=== PATIENT | female | born 1955 | race Caucasian/White ===

== ENCOUNTER 2020-02-27 10:26 | Outpatient (CLI) | payer OTHER, SELFPAY ==
--- NOTE | 2020-02-27 10:57 | XR_ITS ---
WS: [id number] Scoliosis series, 02/27/2020 Clinical Data: CHRONIC BACK PAIN/?SCOLIOSIS Comparison: None. Findings: The patient has a thoracic dextroscoliosis. The measurement of the scoliosis was performed from the T 6 vertebral body to the T9 vertebral body and in the T11 vertebral body and the curvature was 36 degr ees. Then a levoscoliosis of the lumbar spine which was measured from the T11 vertebral body to the L1 to vertebral level and then to the L4 vertebral body. The curvature was 52 degrees. The chest showed no acute cardiopulmonary disease. The abdomen showed a probable hiatal hernia but ot herwise was unremarkable. XR/XR scoliosis survey 2-3V 94630 Impression: 1. 36 degree dextroscoliosis of the thoracic spine with the apex at the T9 vert ebral body. 2. 52 degree levoscoliosis of the lumbar spine with the apex at the L1-L2 disc interspace.
== END 2020-02-27 10:27 | disposition home or self-care (01) ==
LOC: RAD 10:29
PROVIDERS: Visit Provider Family Medicine
DX: M54.9 Dorsalgia, unspecified (principal); G89.29 Other chronic pain; M41.84 Other forms of scoliosis, thoracic region
CPT/HCPCS: 72082

== ENCOUNTER → 2021-04-22 10:10 | Outpatient (BNVA) | payer MEDICAID, SELFPAY | PROVIDERS: Visit Provider Family Medicine | DX: Z76.89 Persons encountering health services in other specified circumstances (principal); M54.5 Low back pain; I10 Essential (primary) hypertension; Q85.01 Neurofibromatosis, type 1 | CPT/HCPCS: 80053; 80061; 84443; 85025 ==

== ENCOUNTER 2022-06-08 13:45 | Observation (INO) | payer MEDICARE, MEDICAID, SELFPAY ==
[2022-06-08] VITALS (12 sets, daily range): BP systolic 129–150; BP diastolic 80–97; PULSE 101–120; RESP 18–21; TEMP 36.5–36.7; O2SAT 94–100; BMI 20.7
--- NOTE | 2022-06-08 13:54 | ECG_ITS ---
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 Measurements Intervals [place] Rate: 99 P: 52 RI: 102 QRS: 37 QRSD: 81 T: 40 QT: 328 QTc: 422 Interpretive Statements SINUS RHYTHM WITH SHORT RI INTERVAL MINIMAL ST DEPRESSION No previous ECG available for comparison Electronically Signed On 06-08-2022 22:53:07 CDT by Bernie Martinez M.D. [id number] f
--- NOTE | 2022-06-08 15:13 | XR_ITS ---
WS: [id number] Exam: XR chest 1V portable [id number] Date/Time of Exam: 06/08/2022 3:13 PM Reason For Exam: chest pain Comparison 08/10/2006. Mild infiltrate in the right lower lobe. Remaining lung swenson are clear. No pleural effusions. No pn eumothorax. Heart size is normal for technique. Probable hiatal hernia. Angular levoscoliosis of the thoracolumbar spine. The mediastinum is normal in contour. XR/XR chest 1V portable [id number] IMPRESSION: 1. Mild infiltrate in the right lung base. Developing pneumonia is not excluded . 2. Hiatal hernia. Thoracolumbar scoliosis.
--- NOTE | 2022-06-08 15:13 | XR_ITS ---
WS: [id number] Exam: XR KUB portable [id number] Date/Time of Exam: 06/08/2022 3:13 PM Reason For Exam: epigastric pain No bowel obstruction or free air. No sign of organ enlargement. Angular levoscoliosis of the thoracol umbar spine. XR/XR KUB portable [id number] IMPRESSION: 1. No acute abdominal process identified.
--- NOTE | 2022-06-08 15:24 | W.ED.CHESTPA ---
HPI - Chest Pain General: Chief Complaint: Chest Pain Stated Complaint: chest pain Time Seen by Provider: 06/08/22 15:05 History of Present Illness: 66-year-old female presents with mid lower chest pain that radiates to her back. She reports that it started this morning after a colonoscopy. They got down around 11-11:30. She denies any shortness of breath. She denies any nausea, vomiting. She denies any abdominal pain. Patient denies any fever, chills. Associated symptoms: Deny abdominal pain, dyspnea, fever(s), nausea, palpitations, syncope or vomiting Review of Systems Const: Denies: fever(s) or chills Eyes: Denies: change in vision or blurry vision ENMT: Denies: throat pain or hoarseness Card: Reports: chest pain; Denies: palpitations, irregular heart rhythm, lightheadedness or syncope Resp: Denies: dyspnea, productive cough, wheezing, stridor or pain on inspiration GI: Denies: abdominal pain, nausea or vomiting : Denies: flank pain or difficulty voiding Musc: Reports: back pain; Denies: neck pain Skin/Breast: Denies: rash or pruritus Neuro: Denies: headache(s) or dizziness PFSH ED PFSH: Medical History HTN (hypertension) Neurofibromatosis Surgical History H/O removal of thyroglossal duct cyst Family History Other Neurofibromatosis Social History Smoking and tobacco status: never smoked Alcohol intake: never Substance/Drug Use: never Physical Exam Const: COMMON NORMALS: no acute distress and patient oriented x3 HENMT: COMMON NORMALS: normocephalic, atraumatic and hearing grossly normal bilaterally HEAD & SCALP: normocephalic and atraumatic Neck/C-Spine: COMMON NORMALS: no JVD Chest: COMMONS NORMALS: normal inspection of the chest Resp: COMMON NORMALS: normal respiratory effort, No retractions and No use of accessory muscles Cardio: COMMON NORMALS: no JVD, regular rate and regular rhythm RATE: regular rate RHYTHM: regular rhythm GI: COMMON NORMALS: Normal to inspection, nondistended, normoactive bowel sounds present, Soft to palpation and non-tender PALPATION: Yes Soft to palpation : COMMON NORMALS: Yes no CVA tenderness and Yes normal external appearance BLADDER/KIDNEY EXAM: Yes no CVA tenderness Back/Pelvis: COMMON NORMALS: no CVA tenderness Neuro: COMMON NORMALS: patient oriented x3, CN's II-XII intact bilaterally and moves all extremities Psych: COMMON NORMALS: mental status grossly normal, Normal thought process present and cooperative THOUGHT PROCESS: Normal thought process present Skin: COMMON NORMALS: no rashes or lesions noted and turgor normal GENERAL SKIN EXAM: no rashes or lesions noted and turgor normal Course Vital Signs: Vital signs: Vital Signs Temperature 97.7 F 06/08/22 16:58 Pulse Rate 105 H 06/08/22 22:06 Respiratory Rate 18 06/08/22 22:06 Blood Pressure 140/93 06/08/22 22:06 Pulse Oximetry 96 06/08/22 21:34 Oxygen Delivery Me thod 06/08/22 18:27 MDM - Chest Pain Medical Decision Making Patient with elevated white count. With x-ray that is somewhat suspicious for pneumonia. Along with slight elevation of troponin. Patient to be admitted for pneumonia and elevated troponin for further inpatient evaluation and antibiotics. Patient possible pneumonia and early sepsis versus other etiologies such as non-STEMI. Patient treated with Rocephin. Patient given IV fluids. Patient admitted to Dr. Hannon who agrees to accept patient for further inpatient evaluation. Patient was stable upon transfer to the floor Lab Data : 06/08/22 15:35 06/08/22 15:35 Radiology Impressions Chest X-Ray 06/08/22 15:13 IMPRESSION: 1. Mild infiltrate in the right lung base. Developing pneumonia is not excluded. 2. Hiatal hernia. Thoracolumbar scoliosis. KUB X-Ray 06/08/22 15:13 IMPRESSION: 1. No acute abdominal process identified. Laboratory Results WBC 17.7 10^3/uL (4.0-10.0) H 06/08/22 15:35 RBC 4.90 10^6/uL (4.1-5.3) 06/08/22 15:35 Hgb 12.7 g/dL (11.5-15.3) 06/08/22 15:35 Hct 39.3 % (37.0-47.0) 06/08/22 15:35 MCV 80.2 fl (81-99) L 06/08/22 15:35 MCH 25.9 pg (28.0-34.0) L 06/08/22 15:35 MCHC 32.3 g/dL (30.0-36.0) 06/08/22 15:35 RDW 15.4 % (12.1-15.1) H 06/08/22 15:35 Plt Count 429 10^3/cmm (130-400) H 06/08/22 15:35 MPV 9.7 fL (7.4-10.4) 06/08/22 15:35 Neut % (Auto) 88.9 % 06/08/22 15:35 Lymph % (Auto) 3.2 % 06/08/22 15:35 Morrow % (Auto) 6.9 % 06/08/22 15:35 Eos % (Auto) 0.1 % 06/08/22 15:35 Baso % (Auto) 0.3 % 06/08/22 15:35 Neut # (Auto) 15.78 10^3/uL (1.8-7.7) H 06/08/22 15:35 Lymph # (Auto) 0.6 10^3/uL (0.8-4.8) L 06/08/22 15:35 Morrow # (Auto) 1.2 10^3/uL (0.2-0.9) H 06/08/22 15:35 Eos # (Auto) 0.0 10^3/uL (0.0-0.8) 06/08/22 15:35 Baso # (Auto) 0.1 10^3/uL (0.0-0.1) 06/08/22 15:35 Nucleated RBC % (auto) 0 % 06/08/22 15:35 Nucleated RBCs # 0.0 /100WBC 06/08/22 15:35 Sodium 137 mmol/L (136-145) 06/08/22 15:35 Potassium 4.1 mmol/L (3.5-5.1) 06/08/22 15:35 Chloride 99 mmol/L (98-107) 06/08/22 15:35 Carbon Dioxide 25 mmol/L (22-29) 06/08/22 15:35 Anion Gap 17.1 (5-19) 06/08/22 15:35 BUN 19 mg/dL (8-23) 06/08/22 15:35 Creatinine 0.7 mg/dL (0.5-0.9) 06/08/22 15:35 GFR Calculation 84.2 mL/min (90-130) L 06/08/22 15:35 Glucose 134 mg/dL (65-115) H 06/08/22 15:35 Calculated Osmolality 288 mOsm/kg (285-295) 06/08/22 15:35 Lactate 0.7 mmol/L (0.5-2.2) 06/08/22 20:12 Calcium 9.6 mg/dL (8.5-10.5) 06/08/22 15:35 Total Bilirubin 0.5 mg/dL (0.15-1.2) 06/08/22 15:35 AST 14 U/L (0-32) 06/08/22 15:35 ALT 9 U/L (0-33) 06/08/22 15:35 Alkaline Phosphatase 109 U/L (35-105) H 06/08/22 15:35 Troponin T Baseline 35 ng/L (0-10) H 06/08/22 15:35 Troponin T 120 Minute 41.22 ng/L (0-10) H 06/08/22 17:33 Delta Troponin T 6.22 ABS# (0-10) 06/08/22 17:33 Troponin T Hi Sens 6Hr 37.36 ng/L (0-10) H 06/08/22 20:19 Troponin T Hi Sens 6Hr Delta 2.36 ng/L (0-12) 06/08/22 20:19 Total Protein 7.7 g/dL (6.6-8.7) 06/08/22 15:35 Albumin 4.6 g/dL (3.5-5.2) 06/08/22 15:35 Globulin 3.1 g/dL (1.3-4.6) 06/08/22 15:35 Lipase 28 U/L (13-60) 06/08/22 15:35 Discharge Plan Discharge Patient Disposition: Placed in Observation Admit Provider: El Hannon Clinical Impression: Troponin level elevated Pneumonia Qualifiers: Pneumonia type: due to unspecified organism Laterality: left Coding Level of Care Code ED Chief Operator for Chg Fwd Exam Comprehensive
[2022-06-08] MEDS: famotidine 20 mg/2 mL INJ IVP (15:41)
[2022-06-08 15:45] LABS: Basophils # 0.1 10^3/uL (0.0-0.1); Basophils % 0.3 %; Eosinophils % 0.1 %; Hematocrit 39.3 % (37.0-47.0); Hemoglobin 12.7 g/dL (11.5-15.3); Lymphocytes # 0.6 10^3/uL (0.8-4.8); Lymphocytes % 3.2 %; Mean Corpuscular HGB Conc 32.3 g/dL (30.0-36.0); Mean Corpuscular Hemoglobin 25.9 pg (28.0-34.0); Mean Corpuscular Volume 80.2 fl (81-99); Mean Platelet Volume 9.7 fL (7.4-10.4); Monocytes # 1.2 10^3/uL (0.2-0.9); Monocytes % 6.9 %; Neutrophils # 15.78 10^3/uL (1.8-7.7); Neutrophils % 88.9 %; Nucleated Red Blood Cells % 0 %; Platelet Count 429 10^3/cmm (130-400); Red Cell Distribution Width 15.4 % (12.1-15.1); White Blood Count 17.7 10^3/uL (4.0-10.0)
[2022-06-08 16:14] LABS: Alanine Aminotransferase 9 U/L (0-33); Albumin Level 4.6 g/dL (3.5-5.2); Alkaline Phosphatase 109 U/L (35-105); Anion Gap 17.1 (5-19); Aspartate Amino Transferase 14 U/L (0-32); Blood Urea Nitrogen 19 mg/dL (8-23); Calcium 9.6 mg/dL (8.5-10.5); Carbon Dioxide 25 mmol/L (22-29); Chloride 99 mmol/L (98-107); Globulin 3.1 g/dL (1.3-4.6); Glomerular Filtration Rate 84.2 mL/min (90-130); Glucose 134 mg/dL (65-115); Lipase 28 U/L (13-60); Osmolality Calculated 288 mOsm/kg (285-295); Potassium 4.1 mmol/L (3.5-5.1); Sodium 137 mmol/L (136-145); Total Bilirubin 0.5 mg/dL (0.15-1.2); Total Protein 7.7 g/dL (6.6-8.7)
[2022-06-08 16:18] LABS: Troponin(5th) Baseline 35 ng/L (0-10)
--- NOTE | 2022-06-08 17:43 | PC.NURSE ---
Patient on continuous CM and SP02 monitor
[2022-06-08 18:08] LABS: Troponin 5 2HR 41.22 ng/L (0-10)
[2022-06-08 18:09] LABS: Troponin 5 2HR Delta 6.22 ABS# (0-10)
--- NOTE | 2022-06-08 18:36 | ECG_ITS ---
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 Measurements Intervals [place] Rate: 115 P: 59 GA: 119 QRS: 45 QRSD: 86 T: 37 QT: 316 QTc: 437 Interpretive Statements SINUS TACHYCARDIA WITH SHORT GA INTERVAL POSSIBLE LEFT ATRIAL ENLARGEMENT [-0.1mV P-WAVE IN V1/V2] ABNORMAL RHYTHM ECG Compared to ECG 06/08/2022 13:54:41 Sinus rhythm no longer present ST (T wave) deviation no longer present Electronically Signed On 06-08-2022 23:07:03 CDT by Bernie Martinez M.D. [id number]
[2022-06-08] MEDS: fentaNYL 50 mcg/mL INJ 2mL 25 MCG IVP (18:47)
[2022-06-08] MEDS: sodium chloride 0.9% 1,000 ML 999 ML IV (19:15)
[2022-06-08] MEDS: morphine 4 mg/mL SDV 1 mL IVP (19:40)
[2022-06-08] MEDS: cefTRIAXone 1,000 MG in sodium chloride 0.9% (plus) 50 ML 100 MG IV (20:17)
[2022-06-08] MEDS: sodium chloride 0.9% 1,000 ML 100 ML IV ×2 (20:39→22:43)
[2022-06-08 20:48] LABS: Lactate (Lactic Acid level) 0.7 mmol/L (0.5-2.2)
[2022-06-08 20:48] LABS: Troponin 5 6HR 37.36 ng/L (0-10)
[2022-06-08 20:51] LABS: Troponin 5 6HR Delta 2.36 ng/L (0-12)
--- NOTE | 2022-06-08 21:44 | CTR_ITS ---
PROCEDURE INFORMATION: Exam: CTA Chest With Contrast Exam date and time: 06/08/2022 9:54 PM Age: 66 years old Clinical indication: Radiating; Patient HX: C/O chest and upper back pain with cough and elevated troponin. Tachycardic on monitor. ; Additional info: Chest pain rad to back, cough, tachycardia, assess for pe TECHNIQUE: Imaging protocol: Computed tomographic angiography of the chest with contrast. 3D rendering (Not supervised by radiologist): MIP and/or 3D reconstructed images were created by the technologist. Radiation optimization: All CT scans at this facility use at least one of these dose optimization techniques: automated exposure control; mA and/or kV adjustment per patient size (includes targeted exams where dose is matched to clinical indication); or iterative reconstruction. Contrast material: OMNI 350; Contrast volume: 98 ml; Contrast route: INTRAVENOUS (IV); COMPARISON: CR XR chest 1V portable [id number] 06/08/2022 3:22 PM RADIATION DOSE METRICS: Total DLP (mGy-cm): 173.05 FINDINGS: Pulmonary arteries: Normal. No pulmonary emboli. Aorta: Unremarkable. No aortic aneurysm. No aortic dissection. Thyroid: Bilateral thyroid nodules are present and incompletely assessed. Largest nodule posterior right lobe may be peripherally calcified measuring about 2 cm, difficult to clearly evaluate. Lungs: Mosaic attenuation lung parenchymal changes bilaterally. Lower lobe bronchiectasis greater right than left. Diffuse reticular changes of pulmonary interstitium. No central airway obstruction. Lower lobe hazy ground-glass opacities with mild volume loss. Pleural spaces: Unremarkable. No pneumothorax. No pleural effusion. Heart: Unremarkable. No cardiomegaly. No pericardial effusion. Mediastinal space: Unremarkable thoracic esophagus. Lymph nodes: Unremarkable. No enlarged lymph nodes. Diaphragm: Large hiatal hernia. Bones/joints: Unremarkable. No acute fracture. Soft tissues: Unremarkable. CT/CT angio chest PE protcl [id number] IMPRESSION: 1. Negative for pulmonary embolism. 2. Nonspecific lower lobe opacities. Possible etiologies are atelectasis changes, developing pneumonia, nonspecific pneumonitis features or dependent pulmonary edema. 3. Mosaic attenuation of the lung parenchyma likely representing underlying small airways disease. COMMENTS: Consistent with the [place] [employer]'s Incidental Findings Committee white paper (J Am Chon Radiol 2015): In patients aged 35 years and older with an incidental thyroid nodule equal to or greater than 1.[address], MRI or extrathyroidal US, further evaluation with dedicated thyroid US is recommended for patients with normal life expectancy and without comorbidities. For smaller nodules without suspicious features, no further evaluation or follow up is recommended.
--- NOTE | 2022-06-08 21:45 | PM.HP ---
Providers/Chief Complaint Primary Care Provider: Kelton Dhaliwal DO Chief Complaint: chest pain History of Present Illness Pleasant 66-year-old lady earlier today having undergone colonoscopy came into ER with complaint of mid lower chest pain radiating to the back worse with inspiration, movement, having some dry cough as well. Nonproductive, no hemoptysis. States started feeling some malaise still during having the prep, having some mild chills/feeling cold. Denies lower extremity swelling. In ER noted with sinus tachycardia 108-115 bpm, WBC count 17.7. KUB without acute abdominal process. Chest x-ray with mild infiltrate in right lung base, developing pneumonia not excluded. Hiatal hernia. Thoracolumbar scoliosis. She denies any vomiting. Denies any aspiration with food or drink. Review of Systems Const: Denies: fever(s), chills, body aches or malaise Eyes: Denies: change in vision, eye discomfort or eye redness ENMT: Denies: throat pain, oral sores or ear or mastoid pain Card: Reports: chest pain; Denies: edema, pre-syncope or dyspnea on exertion Resp: Reports: non-productive cough and pain on inspiration; Denies: dyspnea, productive cough, change in phlegm color or hemoptysis GI: Denies: abdominal pain, nausea, vomiting, diarrhea, constipation, hematochezia or melena : Denies: flank pain, urinary frequency or hematuria Musc: Reports: other (Bothered by right lateral hip pain for which was seen by PCP); Denies: back pain, joint swelling or joint redness Skin/Breast: Denies: rash or new lesions Neuro: Denies: headache(s), numbness in extremities, weakness in extremities, dizziness, confusion or seizure-like activity Endo: Denies: polyuria or polydipsia Jamie/Lymph: Denies: easy bleeding or tender lymph nodes All/Imm: Denies: urticaria or tongue swelling Medications/Allergies Home Medications Medication Instructions Recorded Confirmed Last Taken Type lisinopril 10 mg tablet 10 mg PO DAILY #30 tabs 04/22/21 06/08/22 06/08/22 Rx tizanidine 4 mg tablet 4 mg PO TID PRN Muscle Spasm 04/22/21 06/08/22 Unknown History tramadol 50 mg tablet 50 mg PO Q6H PRN Pain 04/22/21 06/08/22 06/08/22 History hydrochlorothiazide 12.5 mg tablet 12.5 mg PO DAILY 06/08/22 06/08/22 06/08/22 History Allergies Allergy/AdvReac Type Severity Reaction Status Date / Time No Known Allergies Allergy Verified 06/08/22 15:50 PFSH Acute PFSH: Medical History HTN (hypertension) Neurofibromatosis Surgical History H/O removal of thyroglossal duct cyst Family History Other Neurofibromatosis Social History Smoking and tobacco status: never smoked Alcohol intake: never Substance/Drug Use: never Vitals/I&O/Wt Last Vital Signs Temp 97.7 F 06/08/22 16:58 Pulse 108 H 06/08/22 21:34 Resp 18 06/08/22 21:34 BP 129/89 06/08/22 21:34 Pulse Ox 96 06/08/22 21:34 O2 Del Method 06/08/22 18:27 06/08/22 06/08/22 06/08/22 06:59 14:59 22:59 Intake Total 1050 / 1050 Balance 1050 / 1050 Weight last 48 hrs Weight 49.895 kg Physical Exam Const: COMMON NORMALS: patient oriented x3 and alert GENERAL APPEARANCE: cooperative ORIENTATION/CONSCIOUSNESS: Yes awake HENMT: COMMON NORMALS: oropharynx normal Neck/C-Spine: COMMON NORMALS: no JVD Resp: COMMON NORMALS: normal respiratory effort and clear to auscultation bilaterally AUSCULTATION: clear to auscultation bilaterally Cardio: COMMON NORMALS: no JVD, regular rhythm, S1 normal heart sound present, S2 normal heart sound present and No murmurs present (Cardio) RATE: tachycardic RHYTHM: regular rhythm HEART SOUNDS: S1 normal heart sound present and S2 normal heart sound present GI: COMMON NORMALS: Normal to inspection, nondistended, normoactive bowel sounds present, Soft to palpation and non-tender PALPATION: Yes Soft to palpation Extremity: COMMON NORMALS: no joint enlargement and no pedal edema OTHER: Right hip painless ROM. No erythema or swelling or warmth compared to the other side. Neuro: COMMON NORMALS: patient oriented x3 and moves all extremities SENSORIUM/ORIENTATION: Yes alert OTHER: Diffuse neurofibromas. Skin: COMMON NORMALS: no rashes or lesions noted GENERAL SKIN EXAM: no rashes or lesions noted OTHER: Lesion/shallow ulceration, nondraining with raised borders, very nasally over left cheekbone. Data : 06/08/22 15:35 06/08/22 15:35 Micro: Microbiology 06/08/22 20:15 Blood Culture - Preliminary Blood SPECIMEN COLLECTED 06/08/22 20:12 Blood Culture - Preliminary Blood SPECIMEN COLLECTED A&P Assessment and plan (1) Sepsis: Possible sepsis, pulmonary source with community-acquired pneumonia, sinus tachycardia 108 bpm, WBC count 17.7, mostly neutrophilic. Some cough, pleuritic chest discomfort. Received ceftriaxone, blood cultures requested, lactic acid normal. Some troponin elevation, possible endorgan dysfunction with demand ischemia. Continue ceftriaxone, add azithromycin. Follow-up blood culture. Will check urine bacterial antigens. Will not request sputum culture as cough is dry at this time, but consider in case this should change. Discussed with her additionally about risks and benefits of CTA for additional assessment given dyspnea, dry cough, tachycardia, chest pain, immobilization for procedure, possible dehydration with prep for colonoscopy, assessment for PE. (2) Pneumonia: As above (3) Troponin level elevated: Mild ovation of troponin, without positive delta, did have some chest pain, but appears mostly pleuritic and possibly component of musculoskeletal pain, some chronic component of back pain with scoliosis as well. Currently complete troponin EKG series. Depending on findings, symptoms, consider further assessment, in case unremarkable, possibly with outpatient stress test. Lipid panel. (4) Skin lesion of face: Skin lesion overlying left cheekbone. Nasally she states has been there for several months. Anticipates that it was after a bite, however, should follow-up with dermatology as it is in the sun exposed area to further exclude malignancy. (5) Right hip pain: Has been having lateral right hip pain over the last several months, good ROM, currently does not appear to have symptoms of joint infection, but monitor for any changes. Pain is lateral, not currently, but reports otherwise able to elicited by palpation. Possible lateral bursitis. Plan Neurofibromatosis HTN Attestations Medical Necessity Statement*: Admission of over 2 midnights is anticipated for assessment and management of pneumonia with sepsis. Coding Level of Care Code Acute Geography Faculty Member for Chg Fwd Diagnoses Sepsis A41.9 Pneumonia J18.9 Troponin level elevated R77.8 Skin lesion of face L98.9 Right hip pain M25.551
[2022-06-08] MEDS: iohexol 350 mg/mL 100 mL Btl IV (22:00)
--- NOTE | 2022-06-08 22:05 | ECG_ITS ---
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 Measurements Intervals [place] Rate: 103 P: 64 UT: 130 QRS: 40 QRSD: 90 T: 18 QT: 340 QTc: 447 Interpretive Statements SINUS TACHYCARDIA ABNORMAL RHYTHM ECG Compared to ECG 06/08/2022 18:36:31 Short UT interval no longer present Electronically Signed On 06-10-2022 0:23:07 CDT by Yoana Santiago M.D. [id number]
[2022-06-08] MEDS: azithromycin 500 MG in sodium chloride 0.9% 250 ML 250 MG IV (22:39)
[2022-06-08] MEDS: TRAMadol 50 mg Tablet PO (22:44)
[2022-06-09] VITALS: BP 128/81; PULSE 109; RESP 20; TEMP 37.1; O2SAT 96
[2022-06-09 00:26] VITALS: RESP 18
[2022-06-09] MEDS: heparin 5,000 unit/mL INJ 1 mL 5000 UNIT SUBCUT (00:26)
[2022-06-09] MEDS: morphine 4 mg/mL SDV 1 mL IVP (00:26)
[2022-06-09 04:00] VITALS: BP 104/68; PULSE 101; RESP 16; TEMP 37; O2SAT 94
[2022-06-09 04:40] LABS: Chol HDL Ratio 3.16 mg/dL (0.0-4.40); Cholesterol 155 mg/dL (0-200); HDL Cholesterol 49 mg/dL (60-100); LDL Cholesterol Calculated 89 mg/dL (50-129); LDL HDL Ratio 1.82 RATIO (0.00-3.22); Triglycerides 83 mg/dL (0-150)
[2022-06-09 08:00] VITALS: BP 100/65; PULSE 100; RESP 18; TEMP 36.7; O2SAT 96
[2022-06-09 08:12] LABS: Basophils % 0.3 %; Hematocrit 33.9 % (37.0-47.0); Hemoglobin 10.8 g/dL (11.5-15.3); Lymphocytes # 1.2 10^3/uL (0.8-4.8); Lymphocytes % 9.1 %; Mean Corpuscular HGB Conc 31.9 g/dL (30.0-36.0); Mean Corpuscular Volume 81.7 fl (81-99); Mean Platelet Volume 10.7 fL (7.4-10.4); Monocytes # 1.5 10^3/uL (0.2-0.9); Monocytes % 11.2 %; Neutrophils # 10.51 10^3/uL (1.8-7.7); Neutrophils % 78.7 %; Nucleated Red Blood Cells % 0 %; Platelet Count 327 10^3/cmm (130-400); Red Blood Count 4.15 10^6/uL (4.1-5.3); Red Cell Distribution Width 15.6 % (12.1-15.1); White Blood Count 13.4 10^3/uL (4.0-10.0)
--- NOTE | 2022-06-09 09:56 | P.DS_ITS ---
Discharge Providers Date of Admission: 06/08/22 20:08 Date of Discharge: June 09, 2022 Attending Provider at Admission: El Hannon Attending Provider at Discharge: Bright Asif MD Primary Care Provider: Kelton Dhaliwal DO Diagnoses at Discharge Discharge Diagnosis (1) Sepsis: Status: Acute (2) Pneumonia: Status: Acute Qualifiers: Laterality: left Pneumonia type: due to unspecified organism (3) Troponin level elevated: Status: Acute (4) Skin lesion of face: Status: Acute (5) Right hip pain: Status: Acute Reason for Visit Reason for Visit: chest pain Hospital Course Hospital Course Bertha is a 66-year-old white female who presented to the hospital with complaints of chest discomfort, pleuritic in nature. Troponin was also slightly elevated. She had earlier in the day had a colonoscopy. She denied any abdominal pain, or bloating. On arrival her white blood cell count was elevated. She did not require oxygen. Chest x-ray suggested bibasilar infiltrate, more on the right. Troponin baseline was 35 with repeat of 41 and then 6-hour of 37. CTA was performed secondary to concern of pulmonary embolism as some tachycardia was present as well. This demonstrated no pulmonary embolism, some thyroid cysts, nonspecific lower lobe opacities possible developing pneumonia. She was placed on Rocephin and azithromycin and monitored overnight. The following day she was not requiring oxygen. Chest discomfort had gone away. She had not developed any fever. White blood cell count was decreasing. It was thought she could be discharged home, for follow-up with her primary care provider. Secondary to mild elevation in troponin, nonspecific EKG changes on admission and outpatient nuclear stress test will be obtained. Aspirin 81 mg/day was started. LDL was checked and not elevated. She should return to the emergency department for any severe or recurrent chest discomfort. She will finish up a short course of Levaquin. She will also follow-up with her primary care provider regarding her thyroid cyst/nodule seen on CT scan that were incompletely evaluated. She could be a candidate for ultrasound depending on previous evaluations. Physical Exam Narrative: General exam no distress, denies chest discomfort Neck is supple no lymphadenopathy or thyromegaly. I cannot feel a thyroid nodule Cardiovascular regular rate and rhythm without murmur Lungs clear no wheezing or crackles Abdomen is soft nontender positive bowel sounds Extremities no cyanosis clubbing or edema, cap refill brisk Skin no rash Discharge Data Studies Completed and Pending Completed Studies During Hospitalization Category Date Time Status CTA chest [CT angio chest PE protcl [id number]] Stat Cat Scan 06/08/22 21:44 Completed XR KUB portable [id number] Stat Exams 06/08/22 15:13 Completed XR chest 1V portable [id number] Stat Exams 06/08/22 15:13 Completed Pending at discharge Category Date Time Status Blood Culture Stat Lab 06/08/22 20:15 Results Complete Blood Count w/Auto AM LABS Lab 06/10/22 04:00 Ordered Complete Blood Count w/Auto AM LABS Lab 06/11/22 04:00 Ordered Complete Blood Count w/Auto AM LABS Lab 06/12/22 04:00 Ordered Comprehensive Metabolic Panel AM LABS Lab 06/10/22 04:00 Ordered Comprehensive Metabolic Panel AM LABS Lab 06/11/22 04:00 Ordered Comprehensive Metabolic Panel AM LABS Lab 06/12/22 04:00 Ordered Radiology Impressions Chest X-Ray 06/08/22 15:13 IMPRESSION: 1. Mild infiltrate in the right lung base. Developing pneumonia is not excluded. 2. Hiatal hernia. Thoracolumbar scoliosis. KUB X-Ray 06/08/22 15:13 IMPRESSION: 1. No acute abdominal process identified. Chest CTA 06/08/22 21:44 IMPRESSION: 1. Negative for pulmonary embolism. 2. Nonspecific lower lobe opacities. Possible etiologies are atelectasis changes, developing pneumonia, nonspecific pneumonitis features or dependent pulmonary edema. 3. Mosaic attenuation of the lung parenchyma likely representing underlying small airways disease. COMMENTS: Consistent with the [employer]'s Incidental Findings Committee white paper (J [employer]iol 2015): In patients aged 35 years and older with an incidental thyroid nodule equal to or greater than 1.[address], MRI or extrathyroidal US, further evaluation with dedicated thyroid US is recommended for patients with normal life expectancy and without comorbidities. For smaller nodules without suspicious features, no further evaluation or follow up is recommended. Laboratory Results WBC 13.4 10^3/uL (4.0-10.0) H 06/09/22 04:00 RBC 4.15 10^6/uL (4.1-5.3) 06/09/22 04:00 Hgb 10.8 g/dL (11.5-15.3) L 06/09/22 04:00 Hct 33.9 % (37.0-47.0) L 06/09/22 04:00 MCV 81.7 fl (81-99) 06/09/22 04:00 MCH 26.0 pg (28.0-34.0) L 06/09/22 04:00 MCHC 31.9 g/dL (30.0-36.0) 06/09/22 04:00 RDW 15.6 % (12.1-15.1) H 06/09/22 04:00 Plt Count 327 10^3/cmm (130-400) 06/09/22 04:00 MPV 10.7 fL (7.4-10.4) H 06/09/22 04:00 Neut % (Auto) 78.7 % 06/09/22 04:00 Lymph % (Auto) 9.1 % 06/09/22 04:00 [place] % (Auto) 11.2 % 06/09/22 04:00 Eos % (Auto) 0.0 % 06/09/22 04:00 Baso % (Auto) 0.3 % 06/09/22 04:00 Neut # (Auto) 10.51 10^3/uL (1.8-7.7) H 06/09/22 04:00 Lymph # (Auto) 1.2 10^3/uL (0.8-4.8) 06/09/22 04:00 [place] # (Auto) 1.5 10^3/uL (0.2-0.9) H 06/09/22 04:00 Eos # (Auto) 0.0 10^3/uL (0.0-0.8) 06/09/22 04:00 Baso # (Auto) 0.0 10^3/uL (0.0-0.1) 06/09/22 04:00 Nucleated RBC % (auto) 0 % 06/09/22 04:00 Nucleated RBCs # 0.0 /100WBC 06/09/22 04:00 Sodium 137 mmol/L (136-145) 06/08/22 15:35 Potassium 4.1 mmol/L (3.5-5.1) 06/08/22 15:35 Chloride 99 mmol/L (98-107) 06/08/22 15:35 Carbon Dioxide 25 mmol/L (22-29) 06/08/22 15:35 Anion Gap 17.1 (5-19) 06/08/22 15:35 BUN 19 mg/dL (8-23) 06/08/22 15:35 Creatinine 0.7 mg/dL (0.5-0.9) 06/08/22 15:35 GFR Calculation 84.2 mL/min (90-130) L 06/08/22 15:35 Glucose 134 mg/dL (65-115) H 06/08/22 15:35 Calculated Osmolality 288 mOsm/kg (285-295) 06/08/22 15:35 Lactate 0.7 mmol/L (0.5-2.2) 06/08/22 20:12 Calcium 9.6 mg/dL (8.5-10.5) 06/08/22 15:35 Total Bilirubin 0.5 mg/dL (0.15-1.2) 06/08/22 15:35 AST 14 U/L (0-32) 06/08/22 15:35 ALT 9 U/L (0-33) 06/08/22 15:35 Alkaline Phosphatase 109 U/L (35-105) H 06/08/22 15:35 Troponin T Baseline 35 ng/L (0-10) H 06/08/22 15:35 Troponin T 120 Minute 41.22 ng/L (0-10) H 06/08/22 17:33 Delta Troponin T 6.22 ABS# (0-10) 06/08/22 17:33 Troponin T Hi Sens 6Hr 37.36 ng/L (0-10) H 06/08/22 20:19 Troponin T Hi Sens 6Hr Delta 2.36 ng/L (0-12) 06/08/22 20:19 Total Protein 7.7 g/dL (6.6-8.7) 06/08/22 15:35 Albumin 4.6 g/dL (3.5-5.2) 06/08/22 15:35 Globulin 3.1 g/dL (1.3-4.6) 06/08/22 15:35 Triglycerides 83 mg/dL (0-150) 06/09/22 04:00 Cholesterol 155 mg/dL (0-200) 06/09/22 04:00 LDL Cholesterol, Calc 89 mg/dL (50-129) 06/09/22 04:00 HDL Cholesterol 49 mg/dL (60-100) L 06/09/22 04:00 LDL/HDL Ratio 1.82 RATIO (0.00-3.22) 06/09/22 04:00 Cholesterol/HDL Ratio 3.16 mg/dL (0.0-4.40) 06/09/22 04:00 Lipase 28 U/L (13-60) 06/08/22 15:35 Vitals Last Vital Signs Temp 98.0 F 06/09/22 08:00 Pulse 100 06/09/22 08:00 Resp 18 06/09/22 08:00 BP 100/65 06/09/22 08:00 Pulse Ox 96 06/09/22 08:00 O2 Del Method 06/09/22 08:00 Discharge Plan Discharge Patient Disposition: Home Condition: Stable Prescriptions: New aspirin 81 mg Tablet,Delayed Release (Dr/Ec) 81 mg PO DAILY Qty: 30 0RF levofloxacin 750 mg tablet 750 mg PO DAILY 7 Days Qty: 7 0RF Continued tramadol 50 mg tablet 50 mg PO Q6H PRN (Reason: Pain) tizanidine 4 mg tablet 4 mg PO TID PRN (Reason: Muscle Spasm) lisinopril 10 mg tablet 10 mg PO DAILY Qty: 30 2RF hydrochlorothiazide 12.5 mg tablet 12.5 mg PO DAILY Discharge Orders: Discharge Order (Routine); Ordered 06/09/22 Ordered By: Bright Asif Other Ambulatory Orders: Sestamibi Stress Test Request (Routine) Timeframe: 1 Week Facility: [facility] - Location: Cardiac Diagnostic Laboratory Ordered By: Bright Asif Referrals: Kelton Dhaliwal DO [Primary Care Provider] - Audie Mckinnon MD [Physician] - 4-7 days Discharge Diet: Cardiac Discharge Activity: Increase activity as tolerated Patient Instructions: Opioid Safety Activity Restrictions/Additional Instructions: Take all medicine as prescribed. Take baby aspirin every day Return for any significant chest discomfort Follow-up with your primary care provider 4 to 7 days Nuclear stress test as an outpatient, will be arranged within the next 7 days. Patient's Health Concerns: Pneumonia, chest discomfort Assessment: Chest discomfort is now resolved Plan of Treatment: Antibiotic, nuclear stress testing Discharge Attestations Time Spent in Discharge Care*: greater than 30 min Quality Metrics Clinical Quality Measures [ No reported AMI, CVA or VTE this stay] Coding Level of Care Code Acute Chg FW DC note Diagnoses Sepsis A41.9 Pneumonia J18.9 Laterality: left Pneumonia type: due to unspecified organism Troponin level elevated R77.8 Skin lesion of face L98.9 Right hip pain M25.551
[2022-06-09] MEDS: levoFLOXacin 750 mg Tablet PO (10:22)
[2022-06-09] MEDS: aspirin 81 mg EC Tablet PO (10:22)
[2022-06-09 11:18] VITALS: BP 100/65; PULSE 100; RESP 18; TEMP 36.7; O2SAT 96
== END 2022-06-09 11:19 | disposition home or self-care (01) ==
LOC: ER 21:41 → MEDSURG 22:09
PROVIDERS: Admitting Provider Internal Medicine; Emergency Provider Student in an Organized Health Care Education/Training Program; PCP Family Medicine; Visit Provider Internal Medicine
DX: J18.9 Pneumonia, unspecified organism (principal); R77.8 Other specified abnormalities of plasma proteins; L98.9 Disorder of the skin and subcutaneous tissue, unspecified; M25.551 Pain in right hip; I10 Essential (primary) hypertension; K44.9 Diaphragmatic hernia without obstruction or gangrene
CPT/HCPCS: 36415; 71045; 71275; 74018; 80053; 80061; 83605; 83690; 84484; 85025; 86403; 87040; 87449; 93005; 96365; 96372; 96375; 99285; G0378; J0456; J0696; J1644; J2270; J3010; J3490; J7030; J7050; Q9967

== ENCOUNTER → 2023-03-25 13:52 | Outpatient (BNVA) | payer MEDICARE, MEDICAID, SELFPAY | PROVIDERS: PCP Family Medicine; Referring Provider Family Medicine; Visit Provider Dermatology | DX: Q85.01 Neurofibromatosis, type 1 (principal); L57.0 Actinic keratosis; L81.4 Other melanin hyperpigmentation | CPT/HCPCS: 11102; 11103; 99203 ==

== ENCOUNTER → 2023-04-08 07:50 | Outpatient (BNVA) | payer MEDICARE, MEDICAID, SELFPAY | PROVIDERS: PCP Family Medicine; Visit Provider Dermatology | DX: C44.319 Basal cell carcinoma of skin of other parts of face (principal); C44.311 Basal cell carcinoma of skin of nose | CPT/HCPCS: 12053; 17311; 17312 ==

== ENCOUNTER → 2023-04-15 09:01 | Outpatient (BNVA) | payer MEDICARE, MEDICAID, SELFPAY | PROVIDERS: PCP Family Medicine; Visit Provider Dermatology | DX: Z48.817 Encounter for surgical aftercare following surgery on the skin and subcutaneous tissue (principal); Z48.02 Encounter for removal of sutures; Q85.01 Neurofibromatosis, type 1 | CPT/HCPCS: 99213 ==

== ENCOUNTER → 2024-07-22 16:31 | Outpatient (BNVA) | payer MEDICARE, MEDICAID, SELFPAY | PROVIDERS: PCP Family Medicine; Visit Provider Emergency Medicine | DX: R50.9 Fever, unspecified (principal) | CPT/HCPCS: 87400 ==

== ENCOUNTER → 2024-10-21 12:56 | Outpatient (BNVA) | payer MEDICARE, MEDICAID, SELFPAY | PROVIDERS: PCP Family Medicine; Visit Provider Nurse Practitioner | DX: R50.9 Fever, unspecified (principal) | CPT/HCPCS: 87400; 87426 ==